=== PATIENT | female | born 1940 | race Two or more races ===

== ENCOUNTER 2023-02-11 12:10 | Inpatient (IN) | payer OTHER ==
[~2023-02-11] VITALS: Ht 157.5 cm; Wt 63.5 kg
[2023-02-11 12:37] LABS: ABG PH 7.485 (7.35-7.45); ABG PO2 74.3 mmHg (80-100); BASE EXCESS -6.1 mmol/l; BICARBONATE 14.6 mmol/l (23-25); SaO2 95.7 %; Tco2 15.2 mmol/l
[2023-02-11] MEDS ORDERED: SYNTHROID100 MCG (12:39)
[2023-02-11] MEDS ORDERED: METOPROLOL SUCC50 MG (12:40)
[2023-02-11] MEDS ORDERED: GLUMETZA1000 MG (12:40)
[2023-02-11] MEDS ORDERED: ELIQUIS5 MG (12:40)
[2023-02-11] MEDS ORDERED: COZAAR100 MG (12:41)
[2023-02-11] MEDS ORDERED: ZESTRIL20 MG (12:42)
[2023-02-11] MEDS ORDERED: MEMANTINE HCL5 MG (12:42)
[2023-02-11] MEDS ORDERED: GLIMEPIRIDE2 M1 (12:42)
[2023-02-11] MEDS ORDERED: LANOXIN125 MCG (12:43)
--- NOTE | 2023-02-11 12:43 | NUR ---
SE RECIBE FEMINA HIPOACTIVA EN AMBULANCIA EN COMPANIA DE FAMILIAR QUIEN REFIERE QUE LA PACIENTE PRESENTA DIFICULTAD RESPIRATORIA DESDE ANOCHE LUEGO DE AHOGARSE CON LA COMIDA EN EL [facility] DONDE RESIDE.
[2023-02-11 12:58] LABS: HEMATOCRIT 32.1 % (36.0-45.00); MEAN CELL VOLUME 89.5 fL (80.00-100.00); MEAN CORPUSCULAR HEMOGLOBIN 30.8 pg (27.00-32.0); MEAN CORPUSCULAR HGB CONC 34.4 g/dl (32.0-36.0); PLATELET COUNT 301 K/uL (150-450); RED BLOOD COUNT 3.59 M/uL (4.00-6.00); RED CELL DISTRIBUTION WIDTH 13.8 % (11.5-14.5)
[2023-02-11 13:20] LABS: ABG pCO2 19.8 mmHg (35-45); allen test SATISFACTORY; o2 21 %; puncture site RADIAL LEFT
[2023-02-11 14:12] LABS: INR 1.59; PARTIAL THROMBOPLASTIN TIME 37.3 SECONDS (22.0-34.0)
[2023-02-11 14:40] LABS: ALBUMIN 1.9 gm/dL (3.4-5.0); BILIRUBIN TOTAL 3.12 mg/dL (0.3-1.2); CALCIUM 8.5 mg/dL (8.5-10.1); CREATININE SERUM 1.51 mg/dL (0.55-1.02); GFR 32.99; GLOBULINA 3.2 G/DL (2.4-3.5); POTASSIUM 3.25 mEq/L (3.5-5.1); TOTAL PROTEIN 5.1 gm/dL (6.4-8.2)
--- NOTE | 2023-02-11 14:46 | NUR ---
PACIENTE FEMENINA ALERTA Y ORIENTADA EN PERSONA, SE COLOCA EN CAMA #1 CON BARRANDAS ELEVADAS. SE CONECTA A MONITOR CARDIACO Y OXIMETRIA DE PULSO. SE LE ORIENTA AL FAMILIAR SOBRE LAS ORDENES, REFIERE ENTENDER LAS MISMAS. SE CANALIZA EN BRAZO DERECHO CON ANGIO #20 Y SE LE COLOCA H/L PATENTE GILBERT DE EDEMA Y ENROJECIMIENTO. SE LE INSERTA COLE #16 CON MEDIDAS ASEPTICAS Y ESTERILES, SE OBSERVA ORINA COLOR KIMBERLYN. SE OBSERVA POR CAMBIOS.
[2023-02-11 15:12] LABS: PROTHROMBIN TIME 16.1 SECONDS (9.0-11.5)
--- NOTE | 2023-02-11 15:21 | NUR ---
SE RECIBE PTE ALERTA Y ORIENTADA EN PERSONA. EN CAMA BAJA CON BARANDAS ELEVADAS POR SEGURIDAD, CONECTADA A MONITOR CADIACO Y OXIMETRIA DE PULSO CONTINUA. SE COLOCA CANULA NASAL A 2LT/MIN. CANALIZADA X2 EN BRAZO DERECHO, GILBERT DE EDEMA Y ERITEMA. RECIBIENDO IV FLUIDS. COLE DRENANDO A GRAVEDAD, ORINA COLOR ANARANJADA.
[2023-02-11 17:55] LABS: ABG PH 7.445 (7.35-7.45); ABG PO2 103.6 mmHg (80-100); ABG pCO2 21.5 mmHg (35-45); BASE EXCESS -7.2 mmol/l; BICARBONATE 14.4 mmol/l (23-25); SaO2 98.1 %; Tco2 15.1 mmol/l
[2023-02-11 17:56] LABS: allen test SATISFACTORY; o2 32 %; puncture site RADIAL RIGHT
[2023-02-11 18:00] LABS: ABG PH 7.452 (7.35-7.45); ABG PO2 122.1 mmHg (80-100); ABG pCO2 20.8 mmHg (35-45)
[2023-02-11 18:01] LABS: BASE EXCESS -7.2 mmol/l; BICARBONATE 14.2 mmol/l (23-25); SaO2 98.8 %; Tco2 14.8 mmol/l; allen test SATISFACTORY; o2 40 %; puncture site RADIAL RIGHT
[2023-02-11 18:48] LABS: URINE APPEARANCE Turbid; URINE BILIRRUBIN Moderate (NEGATIVE); URINE BLOOD Small; URINE COLOR Dark Yellow; URINE GLUCOSE Negative (NEGATIVE); URINE LEUKOCYTE Large; URINE NITRATE Positive
[2023-02-11 18:50] LABS: D DIMER 1.04 MG/L
[2023-02-11 18:50] LABS: URINE RBC 235.3 uL (0.0-20.8)
[2023-02-11 20:18] LABS: URINE EPITHELIAL CELLS > 201.7 uL (0.0-38.8); URINE PROTEIN 100 (NEGATIVE); URINE WBC > 5548.3 uL (0.0-23.2)
[2023-02-11 20:19] LABS: URINE BACTERIA > 9821.2 uL (0.0-1933)
[2023-02-12 00:43] LABS: D DIMER 2.96 MG/L
[2023-02-12 01:32] LABS: CKMB 13.1 NG/ML (0.5-3.6)
[2023-02-12 06:47] LABS: PH,URINE 5.5 (5.0-8.0); URINE APPEARANCE Turbid; URINE BILIRRUBIN Moderate (NEGATIVE); URINE BLOOD Moderate; URINE COLOR Orange; URINE LEUKOCYTE Large; URINE NITRATE Positive
[2023-02-12 06:48] LABS: ABG PH 7.434 (7.35-7.45); ABG PO2 194.8 mmHg (80-100); BASE EXCESS -10.6 mmol/l; BICARBONATE 10.4 mmol/l (23-25); SaO2 99.7 %; Tco2 10.9 mmol/l
[2023-02-12 06:49] LABS: URINE RBC 182.9 uL (0.0-20.8); URINE WBC 4794.4 uL (0.0-23.2)
[2023-02-12 07:24] LABS: INR 3.13
[2023-02-12 07:39] LABS: HEMATOCRIT 35.6 % (36.0-45.00); HEMOGLOBIN 11.9 g/dL (12.0-15.00); MEAN CELL VOLUME 91.3 fL (80.00-100.00); MEAN CORPUSCULAR HEMOGLOBIN 30.4 pg (27.00-32.0); MEAN CORPUSCULAR HGB CONC 33.3 g/dl (32.0-36.0); PLATELET COUNT 251 K/uL (150-450); RED CELL DISTRIBUTION WIDTH 14.2 % (11.5-14.5)
[2023-02-12 07:43] LABS: ERYTHROCYTE SEDIMENTATION RATE 7 mm/hr
[2023-02-12 07:58] LABS: PARTIAL THROMBOPLASTIN TIME 49.4 SECONDS (22.0-34.0)
[2023-02-12 08:00] LABS: PROTHROMBIN TIME 30.2 SECONDS (9.0-11.5)
[2023-02-12 08:01] LABS: ABG pCO2 15.9 mmHg (35-45); o2 40 %
[2023-02-12 08:02] LABS: allen test SATISFACTORY; puncture site RADIAL RIGHT
[2023-02-12 08:19] LABS: CREATININE SERUM 1.62 mg/dL (0.55-1.02); POTASSIUM 3.36 mEq/L (3.5-5.1)
[2023-02-12 08:20] LABS: CALCIUM 6.7 mg/dL (8.5-10.1)
[2023-02-12 08:21] LABS: ALBUMIN 1.4 gm/dL (3.4-5.0); GLOBULINA 2.4 G/DL (2.4-3.5); TOTAL PROTEIN 3.8 gm/dL (6.4-8.2)
[2023-02-12 08:22] LABS: BILIRUBIN TOTAL 2.92 mg/dL (0.3-1.2); BILIRUBIN,CONJUGATED 2.61 mg/dL (0.0-0.2); BILIRUBIN,UNCONJUGATED 0.31 mg/dL (0.0-0.6)
[2023-02-12 08:23] LABS: C-REACTIVE PROTEIN 14.2 MG/DL (0.00-0.29); GFR 30.42
[2023-02-12 08:29] LABS: URINE BACTERIA > 9821.2 uL (0.0-1933); URINE EPITHELIAL CELLS > 201.7 uL (0.0-38.8); URINE GLUCOSE 100 MG/DL (NEGATIVE); URINE PROTEIN 100 (NEGATIVE)
[2023-02-12 08:37] LABS: CHOL HDL RATIO 4.4 (0-5.0)
[2023-02-12 09:34] LABS: CKMB 15.3 NG/ML (0.5-3.6)
== END 2023-02-12 22:31 | disposition expired | DRG 871 ==
LOC: ER 12:10 → SEC-K 23:17 → ICU-2 02-12 03:36
PROVIDERS: General Practice; ADMIT Internal Medicine; ATTEND Internal Medicine
PROC: 4A033R1 Measurement of Arterial Saturation, Peripheral, Percutaneous Approach (ICD-10-PCS; principal; 2023-02-11)
PROC: 3E0F7GC Introduction of Other Therapeutic Substance into Respiratory Tract, Via Natural or Artificial Opening (ICD-10-PCS; 2023-02-11)
PROC: BW25ZZZ Computerized Tomography (CT Scan) of Chest, Abdomen and Pelvis (ICD-10-PCS; 2023-02-11)
PROC: 5A09357 Assistance with Respiratory Ventilation, Less than 24 Consecutive Hours, Continuous Positive Airway Pressure (ICD-10-PCS; 2023-02-11)
DX: A41.9 Sepsis, unspecified organism (principal); J96.00 Acute respiratory failure, unspecified whether with hypoxia or hypercapnia; R65.21 Severe sepsis with septic shock; N39.0 Urinary tract infection, site not specified; Z99.11 Dependence on respirator [ventilator] status; E87.1 Hypo-osmolality and hyponatremia; N17.9 Acute kidney failure, unspecified; I48.91 Unspecified atrial fibrillation; I95.89 Other hypotension; K81.9 Cholecystitis, unspecified; K83.8 Other specified diseases of biliary tract; E88.09 Other disorders of plasma-protein metabolism, not elsewhere classified; I25.10 Atherosclerotic heart disease of native coronary artery without angina pectoris; I11.0 Hypertensive heart disease with heart failure; I50.9 Heart failure, unspecified; G30.9 Alzheimer's disease, unspecified; F02.80 Dementia in other diseases classified elsewhere, unspecified severity, without behavioral disturbance, psychotic disturbance, mood disturbance, and anxiety; Z74.01 Bed confinement status; Z66 Do not resuscitate; E03.9 Hypothyroidism, unspecified; E11.9 Type 2 diabetes mellitus without complications; Z79.4 Long term (current) use of insulin